=== PATIENT | male | born 1985 | race Caucasian/White ===

== ENCOUNTER 2025-06-03 15:15 | Emergency (ER) | payer OTHER ==
[2025-06-03] MEDS: LORazepam 1 MG TAB PO ONE (16:25)
[2025-06-03] MEDS: HALOPERIDOL LACTATE 5 MG/ML VIAL IM ONE (17:34)
[2025-06-03 18:19] LABS: PLATELET COUNT, AUTOMATED 161 10^3/uL (150-450)
[2025-06-03 18:21] LABS: KETONE, URINE MANUAL REFLEX NEGATIVE (NEGATIVE); PROTEIN, URINE MANUAL REFLEX TRACE mg/dL (NEGATIVE); SP GRAVITY,URINE MANUAL REFLEX 1.025 (1.002-1.035); UROBILINOGEN, UA MANUAL REFLEX 4 MG mg/dl (NORMAL)
[2025-06-03 18:22] LABS: NITRITE, URINE MANUAL RFX NEGATIVE (NEGATIVE)
[2025-06-03 18:25] LABS: HYALINE CAST, URINE RFX NONE SEEN /lpf (0-1); RENAL EPITHELIAL, URINE RFX SMALL AMOUNT /hpf; SQUAMOUS EPITHELIAL URINE RFX NONE SEEN /hpf (SMALL AMT)
[2025-06-03 18:26] LABS: MICROSCOPIC EXAM RFX UNSPUN; MUCUS, URINE REFLEX SMALL AMOUNT (NEGATIVE)
[2025-06-03 18:39] LABS: ETHYL ALCOHOL (ETHANOL) < 0.003 % (0.000-0.010)
[2025-06-03 18:40] LABS: SALICYLATE LEVEL < 3.0 MG/DL (<30)
[2025-06-03 18:41] LABS: ALT/SGPT 19 U/L (7.0-40); AST/SGOT 43 U/L (<34); CALCIUM LEVEL 8.9 MG/DL (8.5-10.1); CARBON DIOXIDE LEVEL 25 MMOL/L (20-31); CHLORIDE LEVEL 104 MMOL/L (98-107); CREATININE FOR GFR 0.87 MG/DL (0.70-1.30); GLOMERULAR FILTRATION RATE > 90.0 (>60); POTASSIUM SERUM 4.6 MMOL/L (3.5-5.1); SODIUM LEVEL 142 MMOL/L (136-145)
[2025-06-03 18:51] LABS: AMPHETAMINES LEVEL URINE NEGATIVE (NEGATIVE); BARBITURATES URINE NEGATIVE (NEGATIVE)
[2025-06-03 18:52] LABS: CANNABINOIDS URINE NEGATIVE (NEGATIVE); COCAINE METABOLITE URINE NEGATIVE (NEGATIVE); METHADONE URINE NEGATIVE (NEGATIVE); OPIATES URINE NEGATIVE (NEGATIVE); PHENCYCLIDINE URINE NEGATIVE (NEGATIVE)
[2025-06-03 18:54] LABS: BENZODIAZEPINES URINE POSITIVE (NEGATIVE)
[2025-06-03] MEDS ORDERED: HYDR-4468 PO (18:58)
[2025-06-03] MEDS ORDERED: LEVO25TA5 PO (18:58)
[2025-06-03] MEDS ORDERED: HYDR-4467 PO (18:58)
[2025-06-03 19:00] VITALS: BP 112/60; TEMP 97.5; O2SAT 97
[2025-06-03] MEDS ORDERED: ACET-907 PO (19:09)
[2025-06-03] MEDS ORDERED: DULC10SU2 PR (19:09)
[2025-06-03] MEDS ORDERED: RISP-105 PO (19:09)
[2025-06-03] MEDS ORDERED: OMEP-173 PO (19:09)
[2025-06-03] MEDS ORDERED: TRAZ-252 PO (19:09)
[2025-06-03] MEDS ORDERED: BACIOIN5 OD (19:09)
[2025-06-03] MEDS ORDERED: POLY17PO18 PO (19:09)
[2025-06-03] MEDS ORDERED: GUAI100S51 PO (19:09)
[2025-06-03] MEDS ORDERED: OYST500T16 PO (19:09)
[2025-06-03] MEDS ORDERED: SFHHYD1CR TOP (19:09)
[2025-06-03] MEDS ORDERED: PARO20TA3 PO (19:09)
[2025-06-03] MEDS ORDERED: MILKSUS3 PO (19:09)
[2025-06-03] MEDS ORDERED: HOME MED LIST COMPLETE! XX SCH (19:10)
[2025-06-03] MEDS: traZODone 50 MG TAB PO ONE (20:26)
== END 2025-06-03 21:59 | disposition home or self-care (01) ==
LOC: M ED 15:15 → EDBD 15:15 → M ED 21:59
DX: R45.4 Irritability and anger (principal); R00.1 Bradycardia, unspecified; K59.00 Constipation, unspecified; K21.9 Gastro-esophageal reflux disease without esophagitis; F79 Unspecified intellectual disabilities; F32.A Depression, unspecified; F41.1 Generalized anxiety disorder; F43.20 Adjustment disorder, unspecified; E23.0 Hypopituitarism
CPT/HCPCS: 51701; 80048; 80076; 80143; 80307; 81000; 82077; 82140; 84443; 85027; 87086; 96372; 99285; J1630; J2060